=== PATIENT | female | born 1950 | race American Indian/Alaskan Native ===

== ENCOUNTER 2017-03-03 09:34 | Outpatient (CLI) | payer MEDICAID, MEDICARE, OTHER ==
--- NOTE | 2017-03-04 11:21 | Mammography Report ---
BILATERAL DIGITAL SCREENING MAMMOGRAM with CAD: 03/03/17 09:34:00 CLINICAL: Routine screening. COMPARISON:02/09/16 FINDINGS: The breasts are heterogeneously dense, which may obscure small masses. No mass, architectural distortion or suspicious calcifications. IMPRESSION: No mammographic evidence of malignancy. BI-RADS CATEGORY: 1 - - Negative RECOMMENDATION: Routine mammographic screening in one year. COMMENT: Patient follow-up letters are generated by our [employer] application.
== END 2017-03-03 09:35 | disposition home or self-care (01) ==
LOC: SPVWC 09:34
PROVIDERS: ATTEND Physician Assistant
DX: Z12.31 Encounter for screening mammogram for malignant neoplasm of breast (principal); I10 Essential (primary) hypertension; J45.909 Unspecified asthma, uncomplicated; Z72.0 Tobacco use
CPT/HCPCS: 77067; G0202

== ENCOUNTER 2018-05-19 14:59 | Outpatient (CLI) | payer MEDICAID ==
--- NOTE | 2018-05-19 16:24 | Mammography Report ---
BILATERAL DIGITAL SCREENING MAMMOGRAM with CAD: 05/19/18 14:59:00 CLINICAL: Routine screening. COMPARISON:03/03/17 FINDINGS: The breasts are heterogeneously dense, which may obscure small masses.Left inner biopsy clip. No mass, architectural distortion or suspicious calcifications. IMPRESSION: No mammographic evidence of malignancy. BI-RADS CATEGORY: 2 - - Benign RECOMMENDATION: Routine mammographic screening in one year. COMMENT: Patient follow-up letters are generated by our [employer] application.
== END 2018-05-19 15:00 | disposition home or self-care (01) ==
LOC: SPVWC 14:59
PROVIDERS: ATTEND Student in an Organized Health Care Education/Training Program
DX: Z12.31 Encounter for screening mammogram for malignant neoplasm of breast (principal); I10 Essential (primary) hypertension; J45.909 Unspecified asthma, uncomplicated; Z72.0 Tobacco use; Z88.0 Allergy status to penicillin
CPT/HCPCS: 77067

== ENCOUNTER 2019-09-03 10:43 | Outpatient (CLI) | payer SELFPAY ==
--- NOTE | 2019-09-04 10:49 | Mammography Report ---
DIGITAL SCREENING MAMMOGRAM WITH CAD, 09/03/2019 INDICATION: Routine screening mammography. TECHNIQUE: Digital bilateral 2D mammography was obtained in the craniocaudal and mediolateral obliq ue projections. This examination was interpreted with the benefit of Computer-Aided Detection analysi s. COMPARISON: 05/19/2018 FINDINGS: Breast Density: The breasts are heterogeneously dense, which may obscure small masses. There is no evidence of dominant mass, suspicious calcifications or architectural distortion in eithe r breast. IMPRESSION: No mammographic evidence of malignancy. Follow up recommendation: Routine yearly BI-RADS Category 1: Negative. A "normal" or negative report should not discourage follow up or biopsy of a clinically significant f inding. A written summary of these findings will be mailed to the patient. The patient will be entered into a mammography reporting system which will generate a reminder letter for the patient's next appointmen t at the appropriate interval. The [employer] recommends yearly mammograms starting at age 40 and continuing as l kera as a woman is in good health. Breast MRI is recommended for women with an approximate 20-25% or greater lifetime risk of breast cancer, including women with a strong family history of breast or ova francesca cancer or who have been treated for Hodgkin's disease. Signer Name: Perez Madden MD Signed: 09/04/2019 10:44 AM Workstation Name: [id number]
== END 2019-09-03 10:44 | disposition home or self-care (01) ==
LOC: SPVWC 10:43
PROVIDERS: ATTEND Student in an Organized Health Care Education/Training Program
DX: Z12.31 Encounter for screening mammogram for malignant neoplasm of breast (principal)
CPT/HCPCS: 77067

== ENCOUNTER 2020-05-26 15:38 | Emergency (ER) | payer MEDICAID, MEDICARE ==
[2020-05-26 17:20] VITALS: BP 166/77
--- NOTE | 2020-05-26 17:53 | Cat Scan Report ---
CT HEAD WITHOUT CONTRAST INDICATION / CLINICAL INFORMATION: Trauma. Patient fell sustaining head and facial injuries. TECHNIQUE: All CT scans at this location are performed using CT dose reduction for ALARA by means of automated e xposure control. COMPARISON: None available. FINDINGS: HEMORRHAGE: No evidence of intracranial hemorrhage or extra-axial fluid collection. EXTRA-AXIAL SPACES: Cortical sulci, sylvian fissures and basilar cisterns have an unremarkable appear ance. VENTRICULAR SYSTEM: The ventricular system is of normal size and configuration. CEREBRAL PARENCHYMA: Bilateral physiological basal ganglia calcification is incidentally noted. No si gnificant areas of abnormal brain parenchymal attenuation are identified. There is no indication of r ecent infarction. MIDLINE SHIFT OR HERNIATION: There is no mass effect. CEREBELLUM / BRAINSTEM: Brainstem and cerebellum have an unremarkable appearance. MIDLINE STRUCTURES:No abnormalities of the pituitary gland or pineal region are identified. INTRACRANIAL VESSELS:No abnormalities are identified on this noncontrast head CT. ORBITS: visualized portions of the orbits have an unremarkable appearance. SOFT TISSUES of HEAD: No significant abnormality. CALVARIUM: Evaluation of bone windows reveals no abnormalities. PARANASAL SINUSES / MASTOID AIR CELLS: Paranasal sinuses are free from inflammatory mucosal disease. Mastoid air cells are normally pneumatized. ADDITIONAL FINDINGS: None. IMPRESSION: 1. No intracranial abnormalities are identified on head CT without contrast. Signer Name: Noel Pierce MD Signed: 05/26/2020 5:49 PM Workstation Name: [id number]
--- NOTE | 2020-05-26 18:12 | Cat Scan Report ---
CT MAXILLOFACIAL WITHOUT CONTRAST INDICATION / CLINICAL INFORMATION: FALL WITH FACIAL INJURY. TECHNIQUE: All CT scans at this location are performed using CT dose reduction for ALARA by means of automated e xposure control. COMPARISON: None available. FINDINGS: FACIAL BONES: No fracture or other significant abnormality. PARANASAL SINUSES: Nasal sinuses are free from inflammatory mucosal disease. There is no indication o f hemorrhage in the sinonasal cavity. NASAL CAVITY: No significant abnormality. ORBITS: No significant abnormality. VISUALIZED INTRACRANIAL STRUCTURES: The CT CT head report which is dictated separately. IMPRESSION: 1. No indication of facial fracture or other osseous abnormality. Signer Name: Noel Pierce MD Signed: 05/26/2020 6:08 PM Workstation Name: [id number]
--- NOTE | 2020-05-26 18:20 | Cat Scan Report ---
CT cervical spine wo con INDICATION / CLINICAL INFORMATION: 70 years Female; FALL WITH FACIAL INJURY. TECHNIQUE: Axial CT images of the cervical spine were obtained. Sagittal and coronal reformatted images were pr oduced. All CT scans at this location are performed using CT dose reduction for ALARA by means of aut omated exposure control. COMPARISON: None available. FINDINGS: POST-SURGICAL CHANGES: None. ALIGNMENT: Mild kyphosis of the cervical spine seen which may be related to patient positioning. VERTEBRAE: No signs of fracture. Vertebral bodies are grossly normal in height throughout. There is osseous foraminal narrowing on the left at C6-7 related uncinate and facet hypertrophy. Nati lar findings seen on the right at C5-6. INTRAVERTEBRAL DISCS: Mild disc space narrowing seen at C6-7. Mild disc disease seen at various level s. No definitive signs of significant canal stenosis. PARASPINAL SOFT TISSUES: No significant abnormality. ADDITIONAL FINDINGS: Minimal emphysematous changes seen along apices. IMPRESSION: 1. No signs of acute bony trauma to the cervical spine. Signer Name: Pramod Mars MD, III Signed: 05/26/2020 6:15 PM Workstation Name: [id number]
[2020-05-26] MEDS ORDERED: HYDROcodone/ACETAMINOPHEN 5-325 MG TAB PO ONE (19:20)
[2020-05-26] MEDS ORDERED: TETANUS,DIPHTHERIA TOXOID ADULT 0.5 ML INJ IM ONE (19:20)
--- NOTE | 2020-05-26 19:25 | Emergency Department Report ---
ED Fall HPI - General Chief Complaint: Fall Stated Complaint: CUT ON FACE Time Seen by Provider: 05/26/20 19:08 Source: patient Mode of arrival: Ambulatory - History of Present Illness Initial Comments: This is a 70-year-old female nontoxic, well nourished in appearance, no acute signs of distress presents to the ED with c/o of right upper lip laceration status post fall that occurred today. Patient stated she had a mechanical trip and fall and hit only her right lower lip area. Patient denies any neck pain or back pain. Denies any head trauma or injuries. Denies any other complaints or pain. Denies any LOC. Patient denies any fever, chills, nausea, vomiting, headache, stiff neck, numbness, tingling, back pains. Stated allergies to PCN. Denies being UTD with tetanus. Complaint: fall -: days(s) Fall From: standing When Fall Occurred: 4-6 hours [employer] Fall Witnessed: no Loss of Consciousness: none Prolonged Down Time?: no Symptoms Prior to Fall: none Location: face Severity: mild Severity scale (0 -10): 3 Quality: aching Context: tripped/slipped Associated Symptoms: denies. denies: headache, neck pain, numbness, weakness, chest paint, shortness of breath, abdominal pain, hematuria, unable to walk, lightheaded, vertigo, confusion - Related Data Home Medications Medication Instructions Recorded Confirmed Last Taken Aspirin [Aspirin BABY CHEW TAB] 81 mg PO QDAY PRN 01/07/14 01/07/14 01/07/14 Naproxen Sodium [Aleve TAB] 220 mg PO Q6H PRN 01/07/14 01/08/14 01/07/14 hydroCHLOROthiazide [HCTZ] 25 mg PO QDAY 01/07/14 01/07/14 01/07/14 Previous Rx's Medication Instructions Recorded Last Taken Type Acetaminophen/Codeine [Tylenol 1 tab PO Q6H PRN #12 tab 05/26/20 Unknown Rx /Codeine # 3 tab] Sulfamethoxazole/Trimethoprim 1 each PO BID #14 tablet 05/26/20 Unknown Rx [Bactrim DS TAB] Allergies Allergy/AdvReac Type Severity Reaction Status Date / Time Penicillins Allergy Rash Verified 12/27/13 11:14 ED Review of Systems ROS: Stated complaint: CUT ON FACE Other details as noted in HPI Constitutional: denies: chills, fever Eyes: denies: eye pain, eye discharge, vision change ENT: denies: ear pain, throat pain Respiratory: denies: cough, shortness of breath, wheezing Cardiovascular: denies: chest pain, palpitations Endocrine: no symptoms reported Gastrointestinal: denies: abdominal pain, nausea, diarrhea Genitourinary: denies: urgency, dysuria, discharge Musculoskeletal: denies: back pain, joint swelling, arthralgia Skin: denies: rash, lesions Neurological: denies: headache, weakness, paresthesias Psychiatric: denies: anxiety, depression Hematological/Lymphatic: denies: easy bleeding, easy bruising ED Past Medical Hx - Past Medical History Previous Medical History?: Yes Hx Hypertension: Yes Hx Congestive Heart Failure: No Hx Diabetes: No Hx Asthma: Yes Hx COPD: No - Surgical History Additional Surgical History: left breast biopsy - Social History Smoking Status: Never Smoker Substance Use Type: None - Medications Home Medications: Home Medications Medication Instructions Recorded Confirmed Last Taken Type Aspirin [Aspirin BABY CHEW TAB] 81 mg PO QDAY PRN 01/07/14 01/07/14 01/07/14 History Naproxen Sodium [Aleve TAB] 220 mg PO Q6H PRN 01/07/14 01/08/14 01/07/14 History hydroCHLOROthiazide [HCTZ] 25 mg PO QDAY 01/07/14 01/07/14 01/07/14 History Acetaminophen/Codeine [Tylenol 1 tab PO Q6H PRN #12 tab 05/26/20 Unknown Rx /Codeine # 3 tab] Sulfamethoxazole/Trimethoprim 1 each PO BID #14 tablet 05/26/20 Unknown Rx [Bactrim DS TAB] ED Physical Exam - General Limitations: No Limitations General appearance: alert, in no apparent distress - Head Head exam: Present: atraumatic, normocephalic - Expanded Head Exam Expanded Head exam: Present: laceration 1 - 2 cm superifical lac. - Eye Eye exam: Present: normal appearance, PERRL, EOMI Pupils: Present: normal accommodation - ENT ENT exam: Present: normal exam - Expanded ENT Exam Expanded Ear exam: Present: normal external inspection Mouth exam: Present: normal external inspection, tongue normal, other (small abrasion noted with no lac.). Absent: drooling, trismus, muffled voice Teeth exam: Present: normal inspection. Absent: dental caries, fractured tooth #, dental tenderness #, gingival enlargement Throat exam: Positive: normal inspection. Negative: tonsillar erythema, tonsillomegaly, tonsillar exudate, R peritonsillar mass, L peritonsillar mass - Neck Neck exam: Present: normal inspection, full ROM. Absent: tenderness, meningismus, lymphadenopathy - Respiratory Respiratory exam: Present: normal lung sounds bilaterally. Absent: respiratory distress, wheezes, rales, rhonchi, stridor, chest wall tenderness, accessory muscle use, decreased breath sounds, prolonged expiratory - Cardiovascular Cardiovascular Exam: Present: regular rate, normal rhythm, normal heart sounds. Absent: bradycardia, tachycardia, irregular rhythm, systolic murmur, diastolic murmur, rubs, gallop - Extremities Exam Extremities exam: Present: normal inspection, full ROM, normal capillary refill. Absent: tenderness - Back Exam Back exam: Present: normal inspection, full ROM. Absent: tenderness, CVA tenderness (R), CVA tenderness (L), muscle spasm, paraspinal tenderness, vertebral tenderness, rash noted - Neurological Exam Neurological exam: Present: alert, oriented X3, normal gait - Psychiatric Psychiatric exam: Present: normal affect, normal mood - Skin Skin exam: Present: warm, dry, intact, normal color. Absent: rash ED Course Vital Signs 05/26/20 17:17 Temperature 98.2 F Pulse Rate 61 Respiratory 18 Rate Blood Pressure 166/77 O2 Sat by Pulse 99 Oximetry - Reevaluation(s) Reevaluation #1: 05/26/20 19:26 Patient is speaking in full sentences with no signs of distress noted. - Laceration /Wound Repair Right Face Wound Location: face (right upper lip) Wound Length (cm): 2 Wound's Depth, Shape: superficial Wound Explored: clean Irrigated w/ Saline (ccs): 40 Betadine Prep?: Yes Volume Anesthetic (ccs): 2 (2% lidocaine plain) Wound Repaired With: sutures Suture Size/Type: 5:0, proline Number of Sutures: 2 Layer Closure?: No Sterile Dressing Applied?: Yes (Band-Aid) Progress: Under sterile field, I used Betadine to clean the area. I then used 40 mL of normal saline to flush the area. I then used 2% lidocaine plain and injected 2 mL to the wound. I then used a 5-0 Prolene to suture the laceration. Number of stitches 2. I then applied a sterile 4 x 4 with tape. Minimal bleeding noted but is under control. Patient tolerated procedure well with no signs of distress. ED Medical Decision Making - Medical Decision Making This is a 70-year-old female that presents with laceration. Patient is stable and was examined by me. The laceration suturing has been performed and has been performed and patient tolerated well. A sterile dressing has been applied. Patient was educated on proper wound care. Patient is discharged with Bactrim and Tylenol with codeine and was instructed not to operate any machinery while taking Tylenol with codeine due to drowsiness. Patient was instructed to return in 10 days for suture removal. Patient was instructed to refer to Follow-up wi th a primary care doctor in 3-5 days or if symptoms worsen and continue return to emergency room as soon as possible. At time of discharge, the patient does not seem toxic or ill in appearance. No acute signs of distress noted. Patient agrees to discharge treatment plan of care. No further questions noted by the patient. Critical care attestation.: If time is entered above; I have spent that time in minutes in the direct care of this critically ill patient, excluding procedure time. ED Disposition Clinical Impression: Laceration Fall Qualifiers: Encounter type: initial encounter Qualified Code(s): W19.XXXA - Unspecified fall, initial encounter Disposition: DC-01 TO HOME OR SELFCARE Is pt being admited?: No Does the pt Need Aspirin: No Condition: Stable Instructions: Acetaminophen/Codeine (By mouth), Suture Care (ED), Laceration (ED), Fall Prevention for Older Adults (ED) Additional Instructions: Follow-up with a primary care doctor in 3-5 days or if symptoms worsen and continue return to emergency room as soon as possible. Do not operate any machinery while taking Tylenol with codeine as this may cause drowsiness. Return in 10 days for suture removal. Prescriptions: Sulfamethoxazole/Trimethoprim [Bactrim DS TAB] 1 each PO BID #14 tablet Acetaminophen/Codeine [Tylenol /Codeine # 3 tab] 1 tab PO Q6H PRN #12 tab PRN Reason: Pain , Severe (7-10) Referrals: PRIMARY CARE, [Primary Care Provider] - 3-5 Days TRISTIAN BULLARD MD [Staff Physician] - 3-5 Days Time of Disposition: 20:00
[2020-05-26] MEDS ORDERED: LIDOCAINE (2%) 20 MG/1 ML VIAL 20 ML MDV INFILTRATI ONE (19:29)
[2020-05-26] MEDS ORDERED: DIPHtheria,PERTUSSIS(ACELL),TETANUS VACCINE/PF 0.5 ML VIAL IM ONE ×2 (19:43→19:45)
== END 2020-05-26 20:05 | disposition home or self-care (01) ==
LOC: ED 15:38
DX: S01.511A Laceration without foreign body of lip, initial encounter (principal); I10 Essential (primary) hypertension; J45.909 Unspecified asthma, uncomplicated; Z98.890 Other specified postprocedural states; Z79.899 Other long term (current) drug therapy; Z88.0 Allergy status to penicillin; W01.198A Fall on same level from slipping, tripping and stumbling with subsequent striking against other object, initial encounter; Y93.89 Activity, other specified; Y92.89 Other specified places as the place of occurrence of the external cause; Y99.8 Other external cause status
CPT/HCPCS: 70450; 70486; 72125; 90471; 90714; 90715

== ENCOUNTER 2020-06-09 11:09 | Emergency (ER) | payer MEDICAID ==
[2020-06-09 11:15] VITALS: BP 141/75
--- NOTE | 2020-06-09 12:33 | Emergency Department Report ---
Suture/Staple Removal - HPI Chief Complaint: Laceration/Recheck/Suture Stated Complaint: STITCHES REMOVAL Time Seen by Provider: 06/09/20 12:30 When Sutures or Hudson Placed: 11-14 Days Ago Wound Location: right cheek ED Review of Systems ROS: Stated complaint: STITCHES REMOVAL Other details as noted in HPI Comment: All other systems reviewed and negative ED Past Medical Hx - Past Medical History Hx Hypertension: Yes Hx Congestive Heart Failure: No Hx Diabetes: No Hx Asthma: Yes Hx COPD: No - Surgical History Additional Surgical History: left breast biopsy - Social History Smoking Status: Former Smoker Substance Use Type: None - Medications Home Medications: Home Medications Medication Instructions Recorded Confirmed Last Taken Type Aspirin [Aspirin BABY CHEW TAB] 81 mg PO QDAY PRN 01/07/14 01/07/14 01/07/14 History Naproxen Sodium [Aleve TAB] 220 mg PO Q6H PRN 01/07/14 01/08/14 01/07/14 History hydroCHLOROthiazide [HCTZ] 25 mg PO QDAY 01/07/14 01/07/14 01/07/14 History Acetaminophen/Codeine [Tylenol 1 tab PO Q6H PRN #12 tab 05/26/20 Unknown Rx /Codeine # 3 tab] Sulfamethoxazole/Trimethoprim 1 each PO BID #14 tablet 05/26/20 Unknown Rx [Bactrim DS TAB] Suture Removal Exam - Exam General: Vital signs noted. No distress. Alert and acting appropriately. Wound: No Pathologic Erythema, No Tenderness, No Drainage, No Pus, No Wound Dehiscence Other Systems: All other systems reviewed and are unremarkable. ED Course Vital Signs 06/09/20 11:14 Temperature 98.1 F Pulse Rate 66 Respiratory 16 Rate Blood Pressure 141/75 O2 Sat by Pulse 94 Oximetry ED Recheck MDM - Medical Decision Making 70-year-old female presents to ED for suture removal 2 sutures removed without any problem. Discussed follow-up with primary care physician. Vital signs normal Critical care attestation.: If time is entered above; I have spent that time in minutes in the direct care of this critically ill patient, excluding procedure time. ED Disposition Clinical Impression: Visit for suture removal Disposition: DC-01 TO HOME OR SELFCARE Is pt being admited?: No Does the pt Need Aspirin: No Condition: Stable Additional Instructions: Make sure to follow up with the primary care physician as discussed. If you have any worsening symptoms or develop new symptoms please return to ED immediately. Referrals: [facility] [place] - 3-5 Days [facility] [Outside] - 3-5 Days Forms: Work/School Release Form(ED) Time of Disposition: 12:32
== END 2020-06-09 13:00 | disposition home or self-care (01) ==
LOC: ED 11:09
DX: S01.411D Laceration without foreign body of right cheek and temporomandibular area, subsequent encounter (principal); Z48.02 Encounter for removal of sutures; I10 Essential (primary) hypertension; J45.909 Unspecified asthma, uncomplicated; Z98.890 Other specified postprocedural states; Z87.891 Personal history of nicotine dependence; Z79.899 Other long term (current) drug therapy; Z88.0 Allergy status to penicillin; X58.XXXD Exposure to other specified factors, subsequent encounter
CPT/HCPCS: 99282

== ENCOUNTER 2021-09-15 14:20 | Outpatient (CLI) | payer MEDICAID, MEDICARE ==
--- NOTE | 2021-09-15 15:52 | Mammography Report ---
BILATERAL DIGITAL SCREENING MAMMOGRAM WITH CAD HISTORY: Screening mammogram. TECHNIQUE: Routine digital mammographic imaging performed. This examination was interpreted with gonzalo galvan benefit of Computer-aided Detection analysis. COMPARISON: 09/03/2019, 05/19/2018. FINDINGS: Breast Density: heterogeneously dense breast parenchymal pattern which somewhat lessens the sensitivi ty of the evaluation. Digital CC and MLO views demonstrate no mammographic evidence of malignancy. Biopsy marker in the le ft medial breast is again noted. IMPRESSION: No mammographic evidence of malignancy. If the clinical examination remains stable, recommend bilate ral mammogram in approximately one year. BIRADS 1: Negative. FURTHER INFORMATION: According to the [employer], yearly mammograms are recommend ed starting at age 40 and continuing as long as a woman is in good health. Clinical Breast Exams shou ld be part of a periodic health exam-about every 3 years for women in their 20s and 30s and every yea r for women 40 and over. Breast self exam is an option for women starting in their 20s. Any breast ch kallie noted on a breast self exam should be reported promptly to the patient's healthcare provider. Br east MRI is recommended for women with an approximately 20-25% or greater lifetime risk of breast can cer, including women with a strong family history of breast or ovarian cancer and women who have been treated for Hodgkin's disease. A negative Mammography report should not discourage follow up or biopsy of a clinically significant f inding and/or abnormality. Dense breast tissue may obscure small neoplasms. The patient will be entered into a reminder system with a target due date for the next screening mamm ogram. Signer Name: Malik Galvan MD Signed: 09/15/2021 3:47 PM Workstation Name: [id number]
== END 2021-09-15 14:21 | disposition home or self-care (01) ==
LOC: SPVWC 14:20
PROVIDERS: ATTEND Physician Assistant
DX: Z12.31 Encounter for screening mammogram for malignant neoplasm of breast (principal)
CPT/HCPCS: 77067